=== PATIENT | male | born 1945 | race Caucasian/White ===

== ENCOUNTER 2021-08-17 10:02 | Inpatient (IN) | payer BC ==
[~2021-08-17] VITALS: Ht 175.3 cm; Wt 98.0 kg
[2021-08-17] MEDS ORDERED: ACETAMINOPHEN ES 500 MG TABLET PO ONE (10:30)
[2021-08-17] MEDS ORDERED: PIPERACILLIN SODIUM/TAZOBACTAM 3.375 G in IV DEXTROSE 5% 50 ML IV ONE (10:30)
[2021-08-17] MEDS ORDERED: IV NORMAL SALINE 1000 ML BAG IV ONE (10:30)
[2021-08-17] MEDS ORDERED: HYDR-4209 PO (10:35)
[2021-08-17] MEDS ORDERED: TAMS-3 PO (10:42)
[2021-08-17] MEDS ORDERED: CARB1CAP5 PO (10:42)
[2021-08-17] MEDS ORDERED: IBUP-1957 PO (10:42)
[2021-08-17] MEDS ORDERED: CYCL5TAB PO (10:42)
[2021-08-17] MEDS ORDERED: TRAZ-182 PO (10:42)
[2021-08-17] MEDS ORDERED: FURO40TA5 PO (10:42)
[2021-08-17] MEDS ORDERED: MONT10TA22 PO (10:42)
[2021-08-17] MEDS ORDERED: SERT100T PO (10:42)
[2021-08-17] MEDS ORDERED: ACET-73 PO (10:42)
[2021-08-17] MEDS ORDERED: DONE5TAB34 PO (10:42)
[2021-08-17] MEDS ORDERED: BUPR-319 PO (10:42)
[2021-08-17] MEDS ORDERED: PRAV80TA21 PO (10:42)
[2021-08-17] MEDS ORDERED: LOSA50TA39 PO (10:42)
[2021-08-17] MEDS ORDERED: GABA-532 PO (10:42)
[2021-08-17] MEDS ORDERED: ALLO100T PO (10:42)
[2021-08-17 10:51] LABS: HEMATOCRIT 45.7 % (36.7-47.1); MEAN CORPUSCULAR HEMOGLOBIN 29.2 uug (23.8-33.4); MEAN CORPUSCULAR VOLUME 87.5 fL (73.0-96.2); PLATELET COUNT (AUTO) 176 K/uL (152-348)
[2021-08-17 10:58] LABS: CARBON DIOXIDE 26 mmol/L (21-32); CHLORIDE 99 mmol/L (98-107); CREATININE 1.5 mg/dL (0.6-1.3); GLUCOSE 150 mg/dL (74-106); POTASSIUM 3.6 mmol/L (3.5-5.1); UREA NITROGEN, BLOOD 41 mg/dL (7-18)
[2021-08-17 10:59] LABS: *BILIRUBIN,URIN NEGATIVE (NEGATIVE); *BLOOD, URINE 2+ (NEGATIVE); *CLARITY,URINE CLEAR (CLEAR); *COLOR,URINE YELLOW (YELLOW); *KETONES,URINE NEGATIVE (NEGATIVE); *UROBILINOGEN,URINE 0.2 E.U./dl (NORMAL); LEUKOCYTE ESTERASE ,URINE 1+ (NEGATIVE); NITRITE, URINE NEGATIVE (NEGATIVE); PH,URINE 5.5 (5.0-8.0); UGLUCOSE NEGATIVE (NEGATIVE)
--- NOTE | 2021-08-17 11:03 | NUR ---
PT IS IN ROOM #1B. DR SMITH EVALUATED THE PT. PT's AT THE BEDSIDE. CONTINUE TO MONITOR THE PT.
[2021-08-17 11:11] LABS: ALANINE AMINOTRANSFERASE 8 U/L (16-63); ALKALINE PHOSPHATASE 127 U/L (50-136); ASPARTATE AMINOTRANSFERASE 24 U/L (15-37); BILIRUBIN,DIRECT 0.3 mg/dL (0.0-0.2); BILIRUBIN,TOTAL 0.8 mg/dL (0.2-1.0); TOTAL PROTEIN, SERUM 7.3 g/dL (6.4-8.2)
[2021-08-17] MEDS ORDERED: ACETAMINOPHEN ES 500 MG TABLET ONE (11:19)
[2021-08-17] MEDS ORDERED: PIPERACILLIN/TAZOBACTAM/D5W 50 ML IV ONE (11:20)
[2021-08-17] MEDS ORDERED: VANCOMYCIN IV 1,000 MG in IV DEXTROSE 5% 250 ML IV ONE (11:30)
[2021-08-17] MEDS ORDERED: VANCOMYCIN IV 200 ML ONE (11:40)
[2021-08-17] MEDS ORDERED: TRAZODONE 50 MG TABLET PO PRN (13:30)
[2021-08-17] MEDS ORDERED: Z GUARD REMEDY PASTE 57 GM TUBE TOP PRN (13:30)
[2021-08-17] MEDS ORDERED: ONDANSETRON 4 MG/2 ML VIAL IV PRN (13:30)
[2021-08-17] MEDS ORDERED: ACETAMINOPHEN 325 MG TABLET PO PRN (13:30)
--- NOTE | 2021-08-17 14:06 | NUR ---
REPORT WAS GIVEN TO DEBURR OPERATOR. PT WAS TRANSFERED TO ROOM #310.
--- NOTE | 2021-08-17 14:10 | NUR ---
Received patient from ER via gurney. Awake, on 2L O2 via NC. No signs of acute distress. NSR on court monitor. Vital signs 112/64. HR 82. Temp 97.6. O2 saturation 99%. Oriented patient to unit and room. Bed alarm on for safety. Call light within reach. Will continue to monitor.
[2021-08-17] MEDS ORDERED: CEFTRIAXONE 1 G in IV DEXTROSE 5% 50 ML IV SCH (15:00)
[2021-08-17] MEDS: IV NS 1000 ML 1,000 ML IV PRN (15:25)
[2021-08-17 16:00] VITALS: BP 122/70
[2021-08-17 16:38] LABS: BACTERIA,URINE MANY /HPF (NONE SEEN)
[2021-08-17 16:39] LABS: SQUAMOUS EPITHELIAL CELL,UR FEW /HPF (NONE SEEN)
[2021-08-17] MEDS: GABAPENTIN 100 MG CAPSULE PO SCH (17:04)
[2021-08-17] MEDS: RYTARY PO SCH ×2 (17:28→20:26)
--- NOTE | 2021-08-17 18:37 | NUR ---
Patient resting in bed. AOx4. On 1L O2 via NC. No signs of acute distress. Patient complains of pain during position change, but denies pain while resting. Needs anticipated and met. Compliant with medications and care. NSR with bundle branch on pvc monitor. IV access patent and intact. Bed alarm on for safety. Call light within reach. Will endorse to incoming shift for continuity of care.
[2021-08-17 19:58] VITALS: BP 130/71
[2021-08-17] MEDS: ATORVASTATIN 40 MG TABLET PO SCH (20:26)
[2021-08-17] MEDS: TAMSULOSIN HCL 0.4 MG CAP.SR.24H PO SCH (20:26)
[2021-08-17] MEDS: DOXYCYCLINE HYCLATE IV 100 MG in IV DEXTROSE 5% 100 ML IV SCH (20:27)
[2021-08-17] MEDS: HYDROCODONE/APAP 10-325 MG TABLET PO PRN (21:06)
[2021-08-17] MEDS ORDERED: BISACODYL 5 MG TABLET.DR PO ONE (22:00)
[2021-08-17] MEDS: CYCLOBENZAPRINE HCL 10 MG TABLET PO PRN (22:24)
--- NOTE | 2021-08-17 22:39 | NUR ---
Patient alert and able to make needs known.O2 at 1 [employer] via Nc saturating at 98 %.No s/s of distress noted. Patient c/o lower back pain.Offered Tylenol but refused .Stated its not helping him.Notified new order received ,noted and carried out.Menan given. Caro Alfonso seen and examined patient with new order.Bladder scan done with 55 ml .Patient incontinent to bladder.Pericare rendered .Iv on right FA patent and intact.Administered Iv as ordered. No a/r noted.Call light with in reach .Will continue to monitor.
[2021-08-17] MEDS: CEFEPIME HCL 1 G in IV DEXTROSE 5% 50 ML IV SCH (23:00)
[2021-08-18 00:12] VITALS: BP 139/87
[2021-08-18 04:25] VITALS: BP 152/81
[2021-08-18] MEDS: IV NS 1000 ML 1,000 ML IV PRN ×2 (04:36→21:33)
[2021-08-18] MEDS: CEFEPIME HCL 1 G in IV DEXTROSE 5% 50 ML IV SCH ×3 (05:23→21:36)
[2021-08-18 05:29] LABS: MEAN CORPUSCULAR VOLUME 86.2 fL (73.0-96.2); PLATELET COUNT (AUTO) 170 K/uL (152-348)
[2021-08-18 05:47] LABS: BILIRUBIN,TOTAL 0.5 mg/dL (0.2-1.0); CREATININE 1.3 mg/dL (0.6-1.3); MAGNESIUM 1.7 mg/dL (1.8-2.4); PHOSPHOROUS 2.5 mg/dL (2.5-4.9); POTASSIUM 3.4 mmol/L (3.5-5.1); TOTAL PROTEIN, SERUM 6.2 g/dL (6.4-8.2)
[2021-08-18] MEDS: HYDROCODONE/APAP 10-325 MG TABLET PO PRN ×2 (08:23→21:51)
[2021-08-18] MEDS: SERTRALINE HCL 100 MG TABLET PO SCH (08:24)
[2021-08-18] MEDS: GABAPENTIN 100 MG CAPSULE PO SCH ×2 (08:24→16:00)
[2021-08-18] MEDS: CYCLOBENZAPRINE HCL 10 MG TABLET PO PRN (08:24)
[2021-08-18] MEDS: DOCUSATE SODIUM 100 MG CAPSULE PO SCH ×2 (08:24→20:19)
[2021-08-18] MEDS: FUROSEMIDE 40 MG TABLET PO SCH (08:25)
[2021-08-18] MEDS: ALLOPURINOL 100 MG TABLET PO SCH (08:25)
[2021-08-18] MEDS: MONTELUKAST SODIUM 10 MG TABLET PO SCH (08:25)
[2021-08-18] MEDS: DONEPEZIL 5 MG TABLET PO SCH (08:25)
[2021-08-18] MEDS: LOSARTAN POTASSIUM 50 MG TABLET PO SCH (08:25)
[2021-08-18] MEDS: buPROPion XL 150 MG TAB.SR.24H PO SCH (08:25)
[2021-08-18] MEDS: DOXYCYCLINE HYCLATE IV 100 MG in IV DEXTROSE 5% 100 ML IV SCH (08:35)
[2021-08-18] MEDS: RYTARY PO SCH ×4 (08:36→20:19)
[2021-08-18] MEDS ORDERED: MAGNESIUM OXIDE 400 MG TABLET PO ONE (10:00)
[2021-08-18] MEDS ORDERED: POTASSIUM CHLORIDE 20 MEQ TAB.PRT.SR PO ONE (10:00)
[2021-08-18 11:31] VITALS: BP 147/81
--- NOTE | 2021-08-18 11:54 | NUR ---
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
[2021-08-18] MEDS: VANCOMYCIN IV 750 MG in IV DEXTROSE 5% 250 ML IV SCH (15:56)
[2021-08-18 16:00] VITALS: BP 159/71
--- NOTE | 2021-08-18 18:28 | NUR ---
patient is alert, oriented x4, no sob, resp even nonlabored, skin warm and dry to touch, repositioned, voided well x4, no residual noted at bladder scan. patient abdomen is distended, and rigid, patient has no bm, dr miranda aware with order to do fleet enema. Addendum: 08/18/21 at 1840 by KAT HWANG RN, RN dr miranda is aware about the procal result
[2021-08-18 20:00] VITALS: BP 153/78
[2021-08-18] MEDS: TAMSULOSIN HCL 0.4 MG CAP.SR.24H PO SCH (20:19)
[2021-08-18] MEDS: ATORVASTATIN 40 MG TABLET PO SCH (20:19)
[2021-08-18] MEDS ORDERED: FLEET ENEMA 133 ML BOTTLE RC ONE (21:00)
[2021-08-19] VITALS: BP 163/82
[2021-08-19 04:00] VITALS: BP 173/78
[2021-08-19] MEDS: CYCLOBENZAPRINE HCL 10 MG TABLET PO PRN (04:39)
--- NOTE | 2021-08-19 04:45 | NUR ---
Patient awake c/o muscle spasm on both lower legs. Medicated with Flexeril.No s/s of distress noted. Will continue to monitor.
[2021-08-19] MEDS: HYDROCODONE/APAP 10-325 MG TABLET PO PRN ×2 (05:45→21:08)
[2021-08-19] MEDS: VANCOMYCIN IV 750 MG in IV DEXTROSE 5% 250 ML IV SCH ×2 (06:11→16:57)
--- NOTE | 2021-08-19 06:15 | NUR ---
Patient still c/o muscle spasm . Flexeril was ineffective. [place] given.Patient remain alert.Noted Body shaking,repositioned patient for comfort.carolee Becerra notified with new order received .
[2021-08-19] MEDS: CEFEPIME HCL 1 G in IV DEXTROSE 5% 50 ML IV SCH ×3 (06:42→21:17)
--- NOTE | 2021-08-19 07:14 | NUR ---
Patient was given fleet enema last night and had large BM x1 this Am. Morning care provided.
--- NOTE | 2021-08-19 07:30 | NUR ---
Received call from Candelario from [facility] regarding patient's MRI scheduled today at midday.MRI checklist done.Called received from [facility]/Lab regarding patient's blood culture positive.Assessed patient's pain level with good result at this time .Endorsed to oncoming shift.
[2021-08-19 07:39] LABS: CREATININE 1.2 mg/dL (0.6-1.3); MAGNESIUM 1.9 mg/dL (1.8-2.4); POTASSIUM 3.3 mmol/L (3.5-5.1)
--- NOTE | 2021-08-19 07:45 | NUR ---
attempted to call [facility] and [place] professional for an [facility] ambulance picking supervisor to take patient to [facility] for an MRI, per ambulance companies, they are saturated and can not provide an [facility] ambulance. Relayed message to case management for possible transportation arrangeme=nt.
[2021-08-19] MEDS: DOCUSATE SODIUM 100 MG CAPSULE PO SCH ×2 (08:35→20:10)
[2021-08-19] MEDS: DONEPEZIL 5 MG TABLET PO SCH (08:35)
[2021-08-19] MEDS: buPROPion XL 150 MG TAB.SR.24H PO SCH (08:35)
[2021-08-19] MEDS: ALLOPURINOL 100 MG TABLET PO SCH (08:35)
[2021-08-19] MEDS: FUROSEMIDE 40 MG TABLET PO SCH (08:36)
[2021-08-19] MEDS: SERTRALINE HCL 100 MG TABLET PO SCH (08:36)
[2021-08-19] MEDS: MONTELUKAST SODIUM 10 MG TABLET PO SCH (08:36)
[2021-08-19] MEDS: GABAPENTIN 100 MG CAPSULE PO SCH ×2 (08:36→17:20)
[2021-08-19] MEDS: LOSARTAN POTASSIUM 50 MG TABLET PO SCH (08:36)
[2021-08-19] MEDS: RYTARY PO SCH ×4 (08:37→20:10)
--- NOTE | 2021-08-19 10:05 | NUR ---
called [facility] and schedule burr picker for 12 noon, spoke with jose armando, called bob peterson from [facility], no answer, message left to inform of burr picker time.
[2021-08-19 10:13] VITALS: BP 139/79
--- NOTE | 2021-08-19 11:37 | NUR ---
Dr. Hameed made aware of preliminary report of gram negative rods seen on gramstain, patient currently on cefepime and vancocin iv and tolerating atb well. not further orders at this time.
[2021-08-19] MEDS ORDERED: POTASSIUM CHLORIDE 50 ML IV SCH (13:00)
--- NOTE | 2021-08-19 13:11 | NUR ---
rytary cap 48.79-195mg not given to patient, patient is currently not in unit and in [place] getting an mri
--- NOTE | 2021-08-19 14:16 | NUR ---
patient returned from mri via ambulance accompanied by 2 body shop worker, patient with v/s 126/70 p: 86 rr: 20 t: 98.9 spo2 96 on 2L.
[2021-08-19] MEDS: HYDROMORPHONE 1 MG/1 ML DISP.SYRIN IV PRN (14:49)
[2021-08-19] MEDS: IV NS 1000 ML 1,000 ML IV PRN (15:20)
[2021-08-19] MEDS: POTASSIUM CHLORIDE 50 ML IV SCH ×2 (15:20→16:32)
[2021-08-19] MEDS ORDERED: MORPHINE SULFATE 4 MG/1 ML DISP.SYRIN IV PRN (15:30)
[2021-08-19] MEDS ORDERED: BISACODYL 10 MG SUPP.RECT RC PRN (15:30)
[2021-08-19 15:51] VITALS: BP 129/64
[2021-08-19] MEDS: LACTULOSE 20 G/30 ML LIQUID UDC PO SCH ×2 (16:32→20:10)
--- NOTE | 2021-08-19 18:00 | NUR ---
bladder scan completed as per order, scan showed 547cc in bladder, straight cath as per order, removed 450cc urine.
[2021-08-19 20:00] VITALS: BP 140/74
--- NOTE | 2021-08-19 20:00 | NUR ---
RECEIVED PATIENT AWAKE IN BED. A/O 2-3, BUT VERY FORGETFUL AND CONFUSED AT TIMES, NEEDS FREQUENT REDIRECTION. VSS. NO C/O PAIN OR DISCOMFORT AT THIS TIME. VS WNL. ON O2 1L NC SATING WELL. IVF INFUSING WELL TO LEFT FA #20 GAUGE. BED ALARM ON. CALL LIGHT IN REACH. ALL NEEDS ATTENDED, WILL CONTINUE T MONITOR AND ASSESS.
[2021-08-19] MEDS: TAMSULOSIN HCL 0.4 MG CAP.SR.24H PO SCH (20:10)
[2021-08-19] MEDS: ATORVASTATIN 40 MG TABLET PO SCH (20:10)
[2021-08-20] MEDS: HYDROMORPHONE 1 MG/1 ML DISP.SYRIN IV PRN ×3 (02:57→20:36)
[2021-08-20] MEDS: VANCOMYCIN IV 750 MG in IV DEXTROSE 5% 250 ML IV SCH (03:45)
[2021-08-20] MEDS: IPRATROPIUM BROMIDE 0.5 MG/2.5 ML NEBU NEB SCH ×4 (03:49→19:16)
[2021-08-20] MEDS: ALBUTEROL SULFATE 2.5 MG/3 ML NEBU NEB SCH ×4 (03:49→19:16)
[2021-08-20 04:00] VITALS: BP 130/40
--- NOTE | 2021-08-20 05:00 | NUR ---
PATIENT AWAKE IN BED. UNABLE TO URINATE. BLADDER SCANNED PATIENT AND RECEIVED 300cc OF URINE. PATIENT REFUSING FOR STRAIGHT CATH TO KEEP BEING INSERTED. CALLED OUT TO [employer] [employer] FOR FURTHER ORDERS. RECEIVED ORDER FOR INSERTION OF F/C. KUHN PLACED AND RECEIVED 300cc OUTPUT OF URINE. VS WNL. IVF STOPPED PER MD ORDER. BED ALARM ON. PATIENT IS VERY FORGETFUL AND NEEDS FREQUENT REDIRECTION. CALL LIGHT IN REACH. ALL NEEDS ATTENDED. WILL CONTINUE TO MONITOR AND ASSESS.
[2021-08-20] MEDS: CEFEPIME HCL 1 G in IV DEXTROSE 5% 50 ML IV SCH ×3 (06:13→22:13)
[2021-08-20] MEDS ORDERED: IPRATROPIUM BROMIDE 0.5 MG/2.5 ML NEBU NEB SCH (07:35)
[2021-08-20] MEDS ORDERED: ALBUTEROL SULFATE 2.5 MG/3 ML NEBU NEB SCH (07:35)
[2021-08-20 08:29] LABS: HEMATOCRIT 40.2 % (36.7-47.1); MEAN CORPUSCULAR HEMOGLOBIN 28.7 uug (23.8-33.4); MEAN CORPUSCULAR VOLUME 86.5 fL (73.0-96.2); PLATELET COUNT (AUTO) 129 K/uL (152-348)
[2021-08-20] MEDS: RYTARY PO SCH ×4 (08:30→20:35)
[2021-08-20 08:54] LABS: CREATININE 1.1 mg/dL (0.6-1.3); PHOSPHOROUS 2.2 mg/dL (2.5-4.9); POTASSIUM 3.1 mmol/L (3.5-5.1)
--- NOTE | 2021-08-20 08:55 | NUR ---
awake oriented x 3 but forgetful at times, repositioned for breakfast but in a lot of pain on the lower back 04/20- medicated with Dilaudid 1mg iv as ordered prn, on /- sat at 95%, BP 165/89- routine antihypertensive med given, safety measures maintained
[2021-08-20] MEDS: FUROSEMIDE 40 MG TABLET PO SCH (09:00)
[2021-08-20] MEDS: DOCUSATE SODIUM 100 MG CAPSULE PO SCH ×2 (09:00→20:33)
[2021-08-20] MEDS: GABAPENTIN 100 MG CAPSULE PO SCH ×2 (09:00→17:46)
[2021-08-20] MEDS: SERTRALINE HCL 100 MG TABLET PO SCH (09:01)
[2021-08-20] MEDS: ALLOPURINOL 100 MG TABLET PO SCH (09:02)
[2021-08-20] MEDS: DONEPEZIL 5 MG TABLET PO SCH (09:02)
[2021-08-20] MEDS: LOSARTAN POTASSIUM 50 MG TABLET PO SCH (09:02)
[2021-08-20] MEDS: LACTULOSE 20 G/30 ML LIQUID UDC PO SCH ×2 (09:02→20:33)
[2021-08-20] MEDS: MONTELUKAST SODIUM 10 MG TABLET PO SCH (09:02)
[2021-08-20] MEDS: buPROPion XL 150 MG TAB.SR.24H PO SCH (09:02)
[2021-08-20] MEDS ORDERED: POTASSIUM CHLORIDE 20 MEQ TAB.PRT.SR PO ONE (11:00)
[2021-08-20 11:55] VITALS: BP 175/83
[2021-08-20] MEDS: hydrALAZINE HCL 10 MG TABLET PO SCH ×2 (11:58→17:48)
--- NOTE | 2021-08-20 12:24 | NUR ---
visitor at bedside
[2021-08-20] MEDS: HYDROCODONE/APAP 10-325 MG TABLET PO PRN (14:03)
[2021-08-20] MEDS ORDERED: IOHEXOL 300MG/ML 100 ML INFUS..BTL ONE (14:06)
[2021-08-20] MEDS ORDERED: SWABABLE VALVE TRANSFER SET EA MC ONE (14:06)
[2021-08-20] MEDS ORDERED: IV NORMAL SALINE 250 ML IV ONE (14:06)
--- NOTE | 2021-08-20 14:15 | NUR ---
to CT scan of lumbar spine per bed, Yasemin significant other here and updated
--- NOTE | 2021-08-20 15:00 | NUR ---
back to room, no distress noted, significant other in room
[2021-08-20] MEDS ORDERED: NEUTRA PHOS PACKET PO ONE (15:45)
[2021-08-20 15:58] VITALS: BP_SYST 161; BP_SYST 179; BP_DIAS 81; BP_DIAS 89
[2021-08-20] MEDS: VANCOMYCIN IV 1,000 MG in IV DEXTROSE 5% 250 ML IV SCH (15:58)
--- NOTE | 2021-08-20 18:00 | NUR ---
ate dinner with assist, looks more comfortable, abdomen still looks distended but not firm, russo draining well of clear yellow urine, no BM this shift, all needs attended and met, call light within reach, no distress noted
[2021-08-20] MEDS: TAMSULOSIN HCL 0.4 MG CAP.SR.24H PO SCH (20:34)
[2021-08-20] MEDS: ATORVASTATIN 40 MG TABLET PO SCH (20:34)
[2021-08-20 20:36] VITALS: BP 171/93
[2021-08-20 21:45] VITALS: BP 150/90
[2021-08-21] MEDS: VANCOMYCIN IV 1,000 MG in IV DEXTROSE 5% 250 ML IV SCH ×2 (03:53→16:14)
[2021-08-21] MEDS: HYDROCODONE/APAP 10-325 MG TABLET PO PRN ×2 (03:54→12:29)
[2021-08-21 04:28] VITALS: BP 175/97
[2021-08-21] MEDS: hydrALAZINE HCL 10 MG TABLET PO SCH (04:33)
[2021-08-21] MEDS: CEFEPIME HCL 1 G in IV DEXTROSE 5% 50 ML IV SCH ×3 (05:44→22:37)
[2021-08-21 07:02] LABS: HEMATOCRIT 40.6 % (36.7-47.1); MEAN CORPUSCULAR HEMOGLOBIN 28.6 uug (23.8-33.4); PLATELET COUNT (AUTO) 140 K/uL (152-348)
[2021-08-21 07:13] LABS: PHOSPHOROUS 2.7 mg/dL (2.5-4.9)
[2021-08-21 08:04] VITALS: BP 168/91
[2021-08-21] MEDS: IPRATROPIUM BROMIDE 0.5 MG/2.5 ML NEBU NEB SCH ×3 (08:05→19:18)
[2021-08-21] MEDS: ALBUTEROL SULFATE 2.5 MG/3 ML NEBU NEB SCH ×3 (08:05→19:18)
[2021-08-21] MEDS: RYTARY PO SCH ×4 (08:41→21:03)
[2021-08-21] MEDS: LOSARTAN POTASSIUM 50 MG TABLET PO SCH (08:42)
[2021-08-21] MEDS: GABAPENTIN 100 MG CAPSULE PO SCH ×2 (08:42→16:55)
[2021-08-21] MEDS: MONTELUKAST SODIUM 10 MG TABLET PO SCH (08:42)
[2021-08-21] MEDS: FUROSEMIDE 40 MG TABLET PO SCH (08:42)
[2021-08-21] MEDS: SERTRALINE HCL 100 MG TABLET PO SCH (08:42)
[2021-08-21] MEDS: DONEPEZIL 5 MG TABLET PO SCH (08:42)
[2021-08-21] MEDS: buPROPion XL 150 MG TAB.SR.24H PO SCH (08:43)
[2021-08-21] MEDS: ALLOPURINOL 100 MG TABLET PO SCH (08:44)
--- NOTE | 2021-08-21 08:45 | NUR ---
Pt received awake, denies pain or distress. Pt had BM and declined Lactulose and Colace. pt had poor intake. Pt's abdomen is distended but soft, slight edema present. Ramos is draining yellow urine.
[2021-08-21] MEDS: LACTULOSE 20 G/30 ML LIQUID UDC PO SCH ×2 (08:51→21:00)
[2021-08-21] MEDS: DOCUSATE SODIUM 100 MG CAPSULE PO SCH ×2 (08:51→21:03)
[2021-08-21] MEDS: POTASSIUM CHLORIDE 10 MEQ TAB.PRT.SR PO SCH ×2 (11:03→13:58)
[2021-08-21 12:19] VITALS: BP 161/92
[2021-08-21] MEDS: CYCLOBENZAPRINE HCL 10 MG TABLET PO PRN (16:15)
--- NOTE | 2021-08-21 17:00 | NUR ---
IV site is noted to be infiltrated. IV abx fluids were stopped. Notified MD, order for Midline insertion was received.
--- NOTE | 2021-08-21 18:45 | NUR ---
MIdline inserted right upper arm, amanda 18,. IV abx restarted.
--- NOTE | 2021-08-21 19:25 | NUR ---
Received pt lying in bed, AO x to name, confused about location, on 2L NC saturating at 96%. MARY midline intact and patent. F/C intact and draining, no signs of acute distress. Denies any pain or discomfort at this time. Call lights within reach, safety measures initiated. Will continue to monitor.
[2021-08-21 20:16] VITALS: BP 172/94
[2021-08-21] MEDS: TAMSULOSIN HCL 0.4 MG CAP.SR.24H PO SCH (21:02)
[2021-08-21] MEDS: ATORVASTATIN 40 MG TABLET PO SCH (21:03)
[2021-08-22] MEDS: VANCOMYCIN IV 1,000 MG in IV DEXTROSE 5% 250 ML IV SCH ×2 (04:01→16:59)
[2021-08-22 04:17] VITALS: BP 172/85
[2021-08-22] MEDS: CEFEPIME HCL 1 G in IV DEXTROSE 5% 50 ML IV SCH ×3 (06:04→21:42)
--- NOTE | 2021-08-22 06:32 | NUR ---
Slept throughout the night, AO x 1. on 2L NC saturating at 95%. F/C draining well, clear yellow. MARY midline intact and patent. Vancomycin trough level at 17.9, gave Vancomycin antibiotics, tolerated well. needs have been met. Compliant with care and medication. No signs of acute distress. Denies pain and discomfort at this time. Call lights within reach, safety measures maintained. Will endorse to am shift.
[2021-08-22] MEDS: POTASSIUM CHLORIDE 20 MEQ TAB.PRT.SR PO ONE ×2 (06:40→07:50)
[2021-08-22 06:47] LABS: MEAN CORPUSCULAR HEMOGLOBIN 28.5 uug (23.8-33.4); MEAN CORPUSCULAR VOLUME 85.6 fL (73.0-96.2); PLATELET COUNT (AUTO) 163 K/uL (152-348)
--- NOTE | 2021-08-22 07:00 | NUR ---
HOLD KCL 20 meq per pharmacist. Pharmacist will re enter KCL 20meq order.
[2021-08-22 07:02] LABS: PHOSPHOROUS 2.1 mg/dL (2.5-4.9); POTASSIUM 3.2 mmol/L (3.5-5.1)
[2021-08-22] MEDS ORDERED: POTASSIUM CHLORIDE 40 MEQ in IV NS 1000 ML 1,000 ML IV PRN (07:15)
[2021-08-22] MEDS: ALBUTEROL SULFATE 2.5 MG/3 ML NEBU NEB SCH ×3 (07:22→19:20)
[2021-08-22] MEDS: IPRATROPIUM BROMIDE 0.5 MG/2.5 ML NEBU NEB SCH ×3 (07:22→19:20)
--- NOTE | 2021-08-22 07:30 | NUR ---
Received patient in bed alert and oriented times 2-3 but forgetful at times. Patient is coughing profusely. Will make MD aware. Patient is on 2L of oxygen saturating at 94%. Safety precautions are in place. Will continue to monitor.
[2021-08-22] MEDS: hydrALAZINE HCL 10 MG TABLET PO SCH (07:41)
[2021-08-22] MEDS ORDERED: GUAIFENESIN LA 600 MG TABLET.SA PO STA (07:59)
[2021-08-22] MEDS ORDERED: POTASSIUM CHLORIDE 20 MEQ TAB.PRT.SR PO ONE (08:00)
[2021-08-22] MEDS ORDERED: GUAIFENESIN SUGAR FREE 100 MG/5 ML UDC PO ONE (08:15)
[2021-08-22] MEDS: LACTULOSE 20 G/30 ML LIQUID UDC PO SCH ×2 (10:51→20:13)
[2021-08-22] MEDS: DOCUSATE SODIUM 100 MG CAPSULE PO SCH ×2 (10:52→20:06)
[2021-08-22] MEDS: DONEPEZIL 5 MG TABLET PO SCH (10:53)
[2021-08-22] MEDS: ALLOPURINOL 100 MG TABLET PO SCH (10:53)
[2021-08-22] MEDS: FUROSEMIDE 40 MG TABLET PO SCH (10:53)
[2021-08-22] MEDS: SERTRALINE HCL 100 MG TABLET PO SCH (10:53)
[2021-08-22] MEDS: MONTELUKAST SODIUM 10 MG TABLET PO SCH (10:53)
[2021-08-22] MEDS: GABAPENTIN 100 MG CAPSULE PO SCH ×2 (10:53→17:01)
[2021-08-22] MEDS: buPROPion XL 150 MG TAB.SR.24H PO SCH (10:54)
[2021-08-22] MEDS: LOSARTAN POTASSIUM 50 MG TABLET PO SCH (10:55)
[2021-08-22] MEDS: RYTARY PO SCH ×4 (10:56→20:07)
[2021-08-22] MEDS: HYDROCODONE/APAP 10-325 MG TABLET PO PRN (13:18)
[2021-08-22] MEDS: GUAIFENESIN SUGAR FREE 100 MG/5 ML UDC PO PRN ×2 (15:04→22:35)
[2021-08-22] MEDS ORDERED: NEUTRA PHOS PACKET PO ONE (15:45)
[2021-08-22 16:02] VITALS: BP 131/68
--- NOTE | 2021-08-22 18:19 | NUR ---
Patient left resting in bed. Patient is still coughing. 2L of O2 NC. Patient is stable. Ordered CPT STAT, Respiratory therapist came hours later and says the patient refused. When i asked the patient he stated that he would fo anything that will help him. Patient has coughed all day long. Safety precautions are in place. Will continue to monitor.
--- NOTE | 2021-08-22 19:30 | NUR ---
Received pt in no acute respiratory distress. Iv intact. Pt on2l nasal cannula . Pt forgetful and needs reorientation. Safety and comfort provided. Will continue to monitor.
[2021-08-22] MEDS: TAMSULOSIN HCL 0.4 MG CAP.SR.24H PO SCH (20:06)
[2021-08-22] MEDS: ATORVASTATIN 40 MG TABLET PO SCH (20:06)
[2021-08-22 20:11] VITALS: BP 164/73
--- NOTE | 2021-08-22 22:49 | NUR ---
Informed Dr. Mosley that pt Robitussin plain sugar free is not working for pt. ordered Tessalon mari 100 mg po q8h .
[2021-08-23] MEDS: BENZONATATE 100 MG CAPSULE PO SCH ×4 (00:01→21:24)
[2021-08-23] MEDS: VANCOMYCIN IV 1,000 MG in IV DEXTROSE 5% 250 ML IV SCH ×2 (03:57→15:02)
[2021-08-23 04:28] VITALS: BP 172/80
[2021-08-23] MEDS: CEFEPIME HCL 1 G in IV DEXTROSE 5% 50 ML IV SCH ×3 (05:48→21:24)
[2021-08-23] MEDS: hydrALAZINE HCL 10 MG TABLET PO SCH (05:49)
--- NOTE | 2021-08-23 05:59 | NUR ---
Pt slept intermittently. Pt observed to be coughing. Pt on 2l nasal cannula. Prescribed medication given and pt tolerated it well. Pt given Tylenol 650 mg at 2006h. Robitussin at 2235h for cough. Desyrel 25 mg prn [id number]. Pt tolerated it well. Pt given Apresoline 10mg for 172/80 blood pressure. Pt tolerated it well.Pt russo catheter intact and draining well. Iv intact. Will continue to monitor.
[2021-08-23 06:40] VITALS: BP 165/78
[2021-08-23 06:57] LABS: CREATININE 0.9 mg/dL (0.6-1.3)
[2021-08-23] MEDS: IPRATROPIUM BROMIDE 0.5 MG/2.5 ML NEBU NEB SCH ×3 (07:16→19:31)
[2021-08-23] MEDS: ALBUTEROL SULFATE 2.5 MG/3 ML NEBU NEB SCH ×3 (07:16→19:31)
[2021-08-23 08:04] LABS: POTASSIUM 2.7 mmol/L (3.5-5.1)
--- NOTE | 2021-08-23 08:30 | NUR ---
RECEIVED CALL FROM THE LAB POTASSIUM LEVEL IS 2.7 DR DENISE GROVER AWARE WITH NO NEW ORDERS AT THIS TIME.
[2021-08-23] MEDS: DOCUSATE SODIUM 100 MG CAPSULE PO SCH ×2 (08:46→20:18)
[2021-08-23] MEDS: ALLOPURINOL 100 MG TABLET PO SCH (08:47)
[2021-08-23] MEDS: DONEPEZIL 5 MG TABLET PO SCH (08:47)
[2021-08-23] MEDS: buPROPion XL 150 MG TAB.SR.24H PO SCH (08:47)
[2021-08-23] MEDS: SERTRALINE HCL 100 MG TABLET PO SCH (08:47)
[2021-08-23] MEDS: GABAPENTIN 100 MG CAPSULE PO SCH ×2 (08:47→17:09)
[2021-08-23] MEDS: MONTELUKAST SODIUM 10 MG TABLET PO SCH (08:47)
[2021-08-23] MEDS: RYTARY PO SCH ×4 (08:48→20:20)
[2021-08-23] MEDS: LOSARTAN POTASSIUM 50 MG TABLET PO SCH (08:48)
[2021-08-23] MEDS: LACTULOSE 20 G/30 ML LIQUID UDC PO SCH ×3 (08:52→20:26)
[2021-08-23] MEDS: POTASSIUM CHLORIDE 20 MEQ TAB.PRT.SR PO SCH ×2 (09:30→13:25)
--- NOTE | 2021-08-23 09:46 | NUR ---
AWAKE ALERT AND ORIENTED COOPERATIVE DENIES PAIN OR DISCOMFORTS REMAIN ON IVF ORDERED WITH NO S/S OF INFILTERATION ON SITE DUE MEDS GIVEN AND TOLERATED WELL POTASSIUM REPLACEMENTS STARTED ORDERED KUHN CATH IN PLACE WITH NO S/S OF INFILTERATION ON SITE CALL LIGHTS AND PERSONAL BELONGINGS ARE WITHIN EASY REACH AT THIS TIME WILL CONTINUE TO OBSERVE.
[2021-08-23 11:56] VITALS: BP 127/70
[2021-08-23] MEDS ORDERED: hydrALAZINE HCL 10 MG TABLET PO PRN (13:45)
--- NOTE | 2021-08-23 14:32 | NUR ---
NEW ORDERS FOR EXTRA POTASSIUM RECEIVED AND CARRIED OUT ALSO ORDER FOR BIPAP NOTED PATIENT SIGNIFICANT ORDER AWARE AND STATED WILL BRING OWN MACHINE FROM [place].
[2021-08-23] MEDS ORDERED: BUMETANIDE INJ 4 MG in IV DEXTROSE 5% 24 ML IV ONE (15:00)
[2021-08-23] MEDS ORDERED: NEUTRA PHOS PACKET PO ONE (15:15)
[2021-08-23 16:00] VITALS: BP 151/86
[2021-08-23] MEDS: POTASSIUM CHLORIDE 50 ML IV SCH ×4 (17:07→21:22)
[2021-08-23] MEDS: LIDOCAINE 5% PATCH TD SCH (17:08)
--- NOTE | 2021-08-23 18:00 | NUR ---
NEUTRA PHOS GIVEN ORDERED CONTINUE ON POTASSIUM ORDERED SECOND OF THE 4 BAGS INFUSING HE IS ALERT HAS OCASSIONAL COUGH BIPAP MACHINE AT THE BEDSIDE WILL ENDORSE FOR THE RESPIRATORY THERAPIST TO SET UP WHEN PATIENT IS READY TO SLEEP TONITE.
--- NOTE | 2021-08-23 18:30 | NUR ---
BUMEX IS STILL INFUSING AT THIS TIME.
[2021-08-23 20:10] VITALS: BP 151/74
[2021-08-23] MEDS: TAMSULOSIN HCL 0.4 MG CAP.SR.24H PO SCH (20:18)
[2021-08-23] MEDS: ATORVASTATIN 40 MG TABLET PO SCH (20:18)
[2021-08-23] MEDS: GUAIFENESIN SUGAR FREE 100 MG/5 ML UDC PO PRN (21:50)
--- NOTE | 2021-08-23 22:00 | NUR ---
Took over this patient now from another staff, report received. Patient in bed in high fowlers position. AAO x1, with some confusion noted. Answers questions inappropriately, speech is clear. Noted with SOB due to persistent dry cough. Robitussin PO provided, with minimal help. On 2L o2 via NC, 02 sats remain at 95-97%. Denies any pain at this time. Repositioned for comfort. Needs assessed and met. Safety measures initiated. Call light within reach.
[2021-08-24 04:10] VITALS: BP 128/67
[2021-08-24] MEDS: CEFEPIME HCL 1 G in IV DEXTROSE 5% 50 ML IV SCH ×3 (05:26→21:46)
[2021-08-24] MEDS: BENZONATATE 100 MG CAPSULE PO SCH ×3 (05:31→21:46)
[2021-08-24] MEDS: RYTARY PO SCH ×4 (06:31→20:24)
[2021-08-24 06:42] LABS: HEMATOCRIT 38.9 % (36.7-47.1); MEAN CORPUSCULAR HEMOGLOBIN 28.3 uug (23.8-33.4); MEAN CORPUSCULAR VOLUME 84.4 fL (73.0-96.2); PLATELET COUNT (AUTO) 250 K/uL (152-348)
--- NOTE | 2021-08-24 06:45 | NUR ---
Patient slept well for remainder of shift. Occasional rare dry cough noted. BiPap on for sleep apnea- patient tolerates well. Continues on 2L O2 via NC, 02 sats 93-96%. No c/o pain. Safety measures continued. Call light within reach.
[2021-08-24 07:05] LABS: PHOSPHOROUS 2.4 mg/dL (2.5-4.9); POTASSIUM 2.9 mmol/L (3.5-5.1)
[2021-08-24] MEDS: ALBUTEROL SULFATE 2.5 MG/3 ML NEBU NEB SCH ×3 (07:31→21:08)
[2021-08-24] MEDS: IPRATROPIUM BROMIDE 0.5 MG/2.5 ML NEBU NEB SCH ×3 (07:31→21:07)
--- NOTE | 2021-08-24 07:52 | NUR ---
received in bed awake getting a breathing treatment. noted with intermittent coughing. no s/s sob or pain noted. O2 2 lpm nasal cannula o2 sat 93%. fc intact draining yellow urine. iv intact. will cont to monitor.
[2021-08-24] MEDS ORDERED: POTASSIUM PHOSPHATE MM 15 MMOL in IV NORMAL SALINE 250 ML IV ONE (08:45)
[2021-08-24] MEDS: DOCUSATE SODIUM 100 MG CAPSULE PO SCH ×2 (08:47→20:24)
[2021-08-24] MEDS: LACTULOSE 20 G/30 ML LIQUID UDC PO SCH ×2 (08:47→20:25)
[2021-08-24] MEDS: LIDOCAINE 5% PATCH TD SCH (08:47)
[2021-08-24] MEDS: SERTRALINE HCL 100 MG TABLET PO SCH (08:48)
[2021-08-24] MEDS: GABAPENTIN 100 MG CAPSULE PO SCH ×2 (08:48→17:10)
[2021-08-24] MEDS: ALLOPURINOL 100 MG TABLET PO SCH (08:48)
[2021-08-24] MEDS: DONEPEZIL 5 MG TABLET PO SCH (08:49)
[2021-08-24] MEDS: LOSARTAN POTASSIUM 50 MG TABLET PO SCH (08:50)
[2021-08-24 08:51] LABS: BILIRUBIN,DIRECT 0.2 mg/dL (0.0-0.2); BILIRUBIN,TOTAL 0.9 mg/dL (0.2-1.0); TOTAL PROTEIN, SERUM 6.2 g/dL (6.4-8.2)
[2021-08-24] MEDS: MONTELUKAST SODIUM 10 MG TABLET PO SCH (08:51)
[2021-08-24] MEDS: ENSURE ENLIVE (VAN) 240 ML LIQUID PO SCH (08:52)
[2021-08-24] MEDS: buPROPion XL 150 MG TAB.SR.24H PO SCH (08:52)
[2021-08-24] MEDS ORDERED: POTASSIUM CHLORIDE 10 MEQ TAB.PRT.SR PO SCH (09:00)
[2021-08-24] MEDS: POTASSIUM PHOSPHATE MM 7.5 MMOL in IV NORMAL SALINE 97.5 ML IV SCH ×2 (10:59→15:36)
--- NOTE | 2021-08-24 11:46 | NUR ---
seen and examined by dr. venegas no new orders received at this time.
[2021-08-24 12:18] VITALS: BP 130/73
[2021-08-24] MEDS: PROTEIN SUPPLEMENT (PROSTAT) 30 ML LIQUID PO SCH (12:56)
[2021-08-24 16:00] VITALS: BP 140/69
--- NOTE | 2021-08-24 18:43 | NUR ---
still with intermittent productive coughing. no sob noted. remains on 2lpm nc tolerated. safety measures maintained. kept comfortable. call light in reach.
--- NOTE | 2021-08-24 19:35 | NUR ---
Received pt lying in bed, sitting up. AO x 1/2, sometimes forgetful. On 2L NC saturating at 97%. MARY Midline intact. No signs of acute distress. Denies any pain or discomfort at this time. Call lights within reah, safety measurs in placed.
[2021-08-24 20:10] VITALS: BP 170/71
[2021-08-24] MEDS: TAMSULOSIN HCL 0.4 MG CAP.SR.24H PO SCH (20:24)
[2021-08-25 04:13] VITALS: BP 141/81
[2021-08-25] MEDS: BENZONATATE 100 MG CAPSULE PO SCH ×2 (05:04→13:06)
[2021-08-25] MEDS: HYDROCODONE/APAP 5-325MG TABLET PO PRN ×2 (05:07→11:27)
[2021-08-25] MEDS: GUAIFENESIN SUGAR FREE 100 MG/5 ML UDC PO PRN (05:31)
[2021-08-25] MEDS: CEFEPIME HCL 1 G in IV DEXTROSE 5% 50 ML IV SCH (05:31)
--- NOTE | 2021-08-25 05:41 | NUR ---
Pt slept intermittently throughout the night. AO x 2, forgetful at times. On 2L NC saturating at 95%. Midline intact. Cefepime abx given, tolerated well. F/C intact, draining well. Yellow, clear urine, no foul odor. Guaifenesin PRN given for cough. Compliant with medication and care. Call lights within reach, safety measures maintained. Will endorse to am shift.
[2021-08-25] MEDS: RYTARY PO SCH ×2 (06:30→11:27)
--- NOTE | 2021-08-25 07:15 | NUR ---
Received patient asleep in bed. On 2L NC. No signs of acute distress. Bed alarm on. Call light within reach. Will continue to monitor.
[2021-08-25] MEDS: IPRATROPIUM BROMIDE 0.5 MG/2.5 ML NEBU NEB SCH ×2 (07:23→13:07)
[2021-08-25] MEDS: ALBUTEROL SULFATE 2.5 MG/3 ML NEBU NEB SCH ×2 (07:23→13:07)
[2021-08-25] MEDS: GABAPENTIN 100 MG CAPSULE PO SCH (08:25)
[2021-08-25] MEDS: MONTELUKAST SODIUM 10 MG TABLET PO SCH (08:26)
[2021-08-25] MEDS: ENSURE ENLIVE (VAN) 240 ML LIQUID PO SCH (08:26)
[2021-08-25] MEDS: DOCUSATE SODIUM 100 MG CAPSULE PO SCH (08:26)
[2021-08-25] MEDS: ALLOPURINOL 100 MG TABLET PO SCH (08:26)
[2021-08-25] MEDS: LACTULOSE 20 G/30 ML LIQUID UDC PO SCH ×2 (08:26→09:00)
[2021-08-25] MEDS: SERTRALINE HCL 100 MG TABLET PO SCH (08:26)
[2021-08-25] MEDS: DONEPEZIL 5 MG TABLET PO SCH (08:27)
[2021-08-25] MEDS: LIDOCAINE 5% PATCH TD SCH (08:27)
[2021-08-25] MEDS: buPROPion XL 150 MG TAB.SR.24H PO SCH (08:27)
[2021-08-25] MEDS: PROTEIN SUPPLEMENT (PROSTAT) 30 ML LIQUID PO SCH (08:34)
[2021-08-25] MEDS ORDERED: POTASSIUM CHLORIDE 20 MEQ TAB.PRT.SR PO SCH ×2 (09:00→17:00)
[2021-08-25 09:50] LABS: HEMATOCRIT 39.7 % (36.7-47.1); MEAN CORPUSCULAR HEMOGLOBIN 28.4 uug (23.8-33.4); MEAN CORPUSCULAR VOLUME 84.4 fL (73.0-96.2); PLATELET COUNT (AUTO) 289 K/uL (152-348)
[2021-08-25 10:06] LABS: CREATININE 0.8 mg/dL (0.6-1.3); PHOSPHOROUS 2.7 mg/dL (2.5-4.9); POTASSIUM 2.9 mmol/L (3.5-5.1)
[2021-08-25] MEDS: LOSARTAN POTASSIUM 50 MG TABLET PO SCH (10:21)
[2021-08-25 11:43] VITALS: BP 158/81
[2021-08-25] MEDS ORDERED: levoFLOXacin 750 MG TABLET PO SCH (14:00)
[2021-08-25] MEDS ORDERED: GABA-532 PO (15:40)
[2021-08-25] MEDS ORDERED: PROT30LI PO (15:40)
[2021-08-25] MEDS ORDERED: ALBU2SYR3 PO (15:40)
[2021-08-25] MEDS ORDERED: HYDR-3972 PO (15:40)
[2021-08-25] MEDS ORDERED: LOSA50TA3 PO (15:40)
[2021-08-25] MEDS ORDERED: ACET325T53 PO (15:40)
[2021-08-25] MEDS ORDERED: ACID1TAB4 PO (15:40)
[2021-08-25] MEDS ORDERED: DOCU-141 PO (15:40)
[2021-08-25] MEDS ORDERED: BISA10SU12 RC (15:40)
[2021-08-25] MEDS ORDERED: LIDO30AD10 TD (15:40)
[2021-08-25] MEDS ORDERED: LEVO750T46 PO (15:40)
[2021-08-25] MEDS ORDERED: ALBU2.5V13 NEB (15:40)
[2021-08-25] MEDS ORDERED: MENT71OI TOP (15:40)
[2021-08-25] MEDS ORDERED: POTA-194 PO (15:40)
[2021-08-25] MEDS ORDERED: CYCL10TA9 PO (15:40)
[2021-08-25] MEDS ORDERED: Lactose-Free Food PO (15:40)
[2021-08-25] MEDS ORDERED: CLON1PAT TD (15:54)
[2021-08-25 16:00] VITALS: BP 149/75
--- NOTE | 2021-08-25 16:32 | NUR ---
Discharged patient to [facility]. On 2L O2 via NC. No signs of acute distress. Patient denies pain/ discomfort. Ramos catheter draining yellow, clear urine. Discharge instructions given to patient and SO at bedside. Discharge documents signed and placed in chart. Belongings accounted for and belongings list signed. IV access removed. ID armband removed. Nursing report given to Pedro of [facility]. Patient left hospital via ambulance gurney.
[2021-08-25] MEDS ORDERED: CLONIDINE-TTS 1 PATCH TD SCH (17:00)
== END 2021-08-25 16:30 | DRG 871 ==
LOC: ER 10:02 → TELE3 12:19 → MEDSURG3 08-19 19:05
PROVIDERS: ADMIT Nurse Practitioner Acute Care; ATTEND Internal Medicine
PROC: 05H533Z Insertion of Infusion Device into Right Subclavian Vein, Percutaneous Approach (ICD-10-PCS; principal; 2021-08-21)
PROC: B546ZZA Ultrasonography of Right Subclavian Vein, Guidance (ICD-10-PCS; 2021-08-21)
DX: A41.59 Other Gram-negative sepsis (principal); N17.0 Acute kidney failure with tubular necrosis; G92.8 Other toxic encephalopathy; I50.33 Acute on chronic diastolic (congestive) heart failure; E43 Unspecified severe protein-calorie malnutrition; J15.9 Unspecified bacterial pneumonia; J69.0 Pneumonitis due to inhalation of food and vomit; D68.59 Other primary thrombophilia; N10 Acute pyelonephritis; E87.1 Hypo-osmolality and hyponatremia; T84.59XA Infection and inflammatory reaction due to other internal joint prosthesis, initial encounter; E83.52 Hypercalcemia; B96.1 Klebsiella pneumoniae [K. pneumoniae] as the cause of diseases classified elsewhere; E78.5 Hyperlipidemia, unspecified; E86.0 Dehydration; G30.9 Alzheimer's disease, unspecified; G20 Parkinson's disease; F02.80 Dementia in other diseases classified elsewhere, unspecified severity, without behavioral disturbance, psychotic disturbance, mood disturbance, and anxiety; I11.0 Hypertensive heart disease with heart failure; J45.909 Unspecified asthma, uncomplicated; N40.1 Benign prostatic hyperplasia with lower urinary tract symptoms; Z86.14 Personal history of Methicillin resistant Staphylococcus aureus infection; Z20.822 Contact with and (suspected) exposure to COVID-19; M47.9 Spondylosis, unspecified; E87.6 Hypokalemia; G62.9 Polyneuropathy, unspecified; E88.09 Other disorders of plasma-protein metabolism, not elsewhere classified; K59.00 Constipation, unspecified; R33.8 Other retention of urine; Z68.31 Body mass index [BMI] 31.0-31.9, adult; M19.90 Unspecified osteoarthritis, unspecified site; M10.9 Gout, unspecified; I71.4 Abdominal aortic aneurysm, without rupture; Y83.8 Other surgical procedures as the cause of abnormal reaction of the patient, or of later complication, without mention of misadventure at the time of the procedure; Y92.89 Other specified places as the place of occurrence of the external cause; M48.061 Spinal stenosis, lumbar region without neurogenic claudication
CPT/HCPCS: 36415; 51702; 70030-TC; 71045; 72148; 74018; 83605; 83735; 83970; 84100; 85025; 85730; 87040; 87070; 87077; 87086; 87400; 93005; 93307; 94640; A4217; A4663; A6209; A9150; G0378; J0692; J0696; J1170; J2543; J3370; J3480; J3490; J3590; J7030; J7040; J7050; J7060; J8499; Q9967

== ENCOUNTER 2024-01-28 13:03 | Emergency (ER) | payer BC ==
[~2024-01-28] VITALS: Ht 177.8 cm; Wt 63.5 kg
[~2024-01-28 13:03] MED LIST: ACET325T53 PO; ACID1TAB4 PO; ALBU2.5V13 NEB; ALBU2SYR3 PO; ALLO100T PO; BISA10SU12 RC; BUPR-319 PO; CARB1CAP5 PO; CLON1PAT TD; CYCL10TA9 PO; DOCU-141 PO; DONE5TAB34 PO; GABA-532 PO; HYDR-3972 PO; LEVO750T46 PO; LIDO30AD10 TD; LOSA50TA3 PO; Lactose-Free Food PO; MENT71OI TOP; MONT10TA22 PO; POTA-194 PO; PROT30LI PO; SERT100T PO; TAMS-3 PO; TRAZ-182 PO
[2024-01-28 14:00] LABS: BASOPHILS # (AUTO) 0.1 K/UL (0.0-0.2); BASOPHILS % (AUTO) 2.1 % (0.0-2.0); DIFFERENTIAL COMMENT 0; EOSINOPHILS # (AUTO) 0.1 K/uL (0.0-0.7); EOSINOPHILS % (AUTO) 1.5 % (0.0-7.0); HEMATOCRIT 44.5 % (36.7-47.1); HEMOGLOBIN 15.2 g/dL (12.5-16.3); LYMPHOCYTES # (AUTO) 1.2 K/uL (0.8-4.8); LYMPHOCYTES % (AUTO) 17.1 % (20.5-51.5); MEAN CORPUSCULAR HEMOGLOBIN 30.9 uug (23.8-33.4); MEAN CORPUSCULAR HGB CONC 34 g/dL (32.5-36.3); MEAN CORPUSCULAR VOLUME 90.9 fL (73.0-96.2); MONOCYTES # (AUTO) 0.5 K/uL (0.1-1.30); NEUTROPHILS # (AUTO) 4.8 K/uL (1.8-8.9); NEUTROPHILS % (AUTO) 71.3 % (38.5-71.5); PLATELET COUNT (AUTO) 206 K/uL (152-348); RED CELL DISTRIBUTION WIDTH 15.8 % (12.1-16.2); WHITE BLOOD COUNT (AUTO) 6.8 K/uL (3.6-10.2)
[2024-01-28 14:08] LABS: CALCIUM 10.2 mg/dL (8.5-10.1); CARBON DIOXIDE 27 mmol/L (21-32); CHLORIDE 108 mmol/L (98-107); CREATININE 1.7 mg/dL (0.6-1.3); GLUCOSE 95 mg/dL (74-106); POTASSIUM 4.9 mmol/L (3.5-5.1); SODIUM SERUM 141 mmol/L (136-145); UREA NITROGEN, BLOOD 35 mg/dL (7-18)
[2024-01-28 14:21] LABS: NT-PRO BNP 192 pg/mL (0-125)
[2024-01-28] MEDS ORDERED: GUAIFENESIN/DEXTROMETHORPHAN 5 ML UDC ONE (14:43)
[2024-01-28] MEDS: GUAIFENESIN/DEXTROMETHORPHAN 5 ML UDC PO ONE (14:45)
[2024-01-28] MEDS: GUAIFENESIN/CODEINE 5 ML LIQUID UDC PO ONE ×2 (14:58→18:19)
[2024-01-28] MEDS: MIDAZOLAM HCL 50 MG in IV NORMAL SALINE 40 ML IV PRN (15:34)
[2024-01-28] MEDS ORDERED: FLUT16SP16 BNOSTRILS (16:16)
[2024-01-28] MEDS ORDERED: OXYM15MI4 NS (16:16)
[2024-01-28] MEDS ORDERED: GUAI5SYR4 PO (16:16)
[2024-01-28] MEDS ORDERED: AMOX-430 PO (16:16)
[2024-01-28] MEDS ORDERED: GUAIFENESIN/CODEINE 5 ML LIQUID UDC ONE (18:12)
[2024-01-28 19:11] VITALS: BP 124/69; O2SAT 97
== END 2024-01-28 19:12 | disposition home or self-care (01) ==
LOC: ER 13:05
DX: J32.9 Chronic sinusitis, unspecified (principal); K21.9 Gastro-esophageal reflux disease without esophagitis; F32.A Depression, unspecified; Z79.899 Other long term (current) drug therapy; Z88.1 Allergy status to other antibiotic agents
CPT/HCPCS: 36415; 71045; 84484; 85025; 93005; A4606; A4663

== ENCOUNTER 2025-04-14 06:02 | Inpatient (IN) | payer BC ==
[~2025-04-14] VITALS: Ht 175.3 cm; Wt 90.7 kg
[2025-04-14] VITALS (11 sets, daily range): BP systolic 116–164; BP diastolic 60–81; TEMP 97.7–98.4; O2SAT 92–100
[~2025-04-14 06:02] MED LIST changes: +AMOX-430 PO; +FLUT16SP16 BNOSTRILS; +GUAI5SYR4 PO; +OXYM15MI4 NS
[2025-04-14] MEDS: IPRATROPIUM BROMIDE 0.5 MG/2.5 ML NEBU NEB ONE (06:33)
[2025-04-14] MEDS: ALBUTEROL SULFATE 2.5 MG/3 ML NEBU NEB ONE (06:33)
[2025-04-14] MEDS ORDERED: IPRATROPIUM BROMIDE 0.5 MG/2.5 ML NEBU ONE (06:36)
[2025-04-14] MEDS ORDERED: ALBUTEROL SULFATE 2.5 MG/3 ML NEBU ONE (06:36)
[2025-04-14] MEDS ORDERED: MULT-1045 PO (06:42)
[2025-04-14] MEDS ORDERED: CYAN-51 PO (06:42)
[2025-04-14] MEDS ORDERED: SENN8.6T19 PO (06:42)
[2025-04-14] MEDS ORDERED: KETO120S5 TP (06:42)
[2025-04-14] MEDS ORDERED: LORA-259 PO (06:42)
[2025-04-14] MEDS ORDERED: BENZ200C53 PO (06:42)
[2025-04-14] MEDS ORDERED: ASCO-495 PO (06:42)
[2025-04-14] MEDS ORDERED: BALS60OI TP (06:42)
[2025-04-14] MEDS ORDERED: NYST15CR TP (06:42)
[2025-04-14] MEDS ORDERED: IPRA3AMP23 IH ×2 (06:42)
[2025-04-14] MEDS ORDERED: THIO200T PO (06:42)
[2025-04-14] MEDS ORDERED: AMLO-212 PO (06:42)
[2025-04-14] MEDS ORDERED: AMIT10TA6 PO (06:42)
[2025-04-14] MEDS ORDERED: PETR113O TP (06:42)
[2025-04-14] MEDS ORDERED: CHOL500062 PO (06:42)
[2025-04-14] MEDS ORDERED: NALO4SPR NS (06:42)
[2025-04-14] MEDS ORDERED: MENT3.5O TP (06:42)
[2025-04-14] MEDS ORDERED: CARB1CAP5 PO (06:42)
[2025-04-14] MEDS ORDERED: ALBU6.7H9 INH (06:42)
[2025-04-14] MEDS ORDERED: POLY250017 PO (06:42)
[2025-04-14] MEDS ORDERED: DONE10TA44 PO (06:42)
[2025-04-14] MEDS ORDERED: TRIA60LO7 TP (06:42)
[2025-04-14] MEDS ORDERED: FURO40TA5 PO (06:42)
[2025-04-14] MEDS ORDERED: OLOP2.5D16 EACHEYE (06:42)
[2025-04-14] MEDS ORDERED: ATOR40TA PO (06:42)
[2025-04-14] MEDS ORDERED: GUAI-1197 PO (06:42)
[2025-04-14] MEDS ORDERED: FOLI0.8T3 PO (06:42)
[2025-04-14] MEDS ORDERED: ZINC57OI3 TP (06:42)
[2025-04-14] MEDS ORDERED: FAMO40TA7 PO (06:42)
[2025-04-14] MEDS ORDERED: APIX5TAB PO (06:42)
[2025-04-14] MEDS ORDERED: BUDE10.22 INH (06:42)
[2025-04-14] MEDS ORDERED: MAG30ORA PO (06:42)
[2025-04-14] MEDS ORDERED: [UNRECOGNIZED DRUG - CODE] TP (06:42)
[2025-04-14] MEDS ORDERED: GABA300T25 PO ×2 (06:42)
[2025-04-14 06:51] LABS: PLATELET COUNT (AUTO) 198 K/uL (152-348); RED BLOOD CELL COUNT(AUTO) 4.50 MIL/uL (4.06-5.63); RED CELL DISTRIBUTION WIDTH 17.4 % (12.1-16.2); WHITE BLOOD COUNT (AUTO) 5.7 K/uL (3.6-10.2)
[2025-04-14 07:16] LABS: SODIUM SERUM 140 mmol/L (136-145)
[2025-04-14 07:21] LABS: CREATININE 1.7 mg/dL (0.6-1.3); UREA NITROGEN, BLOOD 29 mg/dL (7-18)
[2025-04-14 07:27] LABS: ASPARTATE AMINOTRANSFERASE 16 U/L (15-37); TOTAL PROTEIN, SERUM 6.6 g/dL (6.4-8.2)
[2025-04-14] MEDS: AZITHROMYCIN IV 500 MG in IV DEXTROSE 5% 250 ML IV SCH (10:13)
[2025-04-14] MEDS ORDERED: REMEDY ESSENTIAL ZINC PASTE 113 GM TP PRN (10:30)
[2025-04-14] MEDS ORDERED: SENNOSIDES 1 TABLET PO PRN (10:30)
[2025-04-14] MEDS ORDERED: ONDANSETRON 4 MG/2 ML VIAL IV PRN (10:30)
[2025-04-14] MEDS ORDERED: HYDROCODONE/APAP 5-325MG TABLET PO PRN (10:30)
[2025-04-14] MEDS ORDERED: MAGNESIUM HYDROXIDE 30 ML LIQUID UDC PO PRN (10:30)
[2025-04-14] MEDS ORDERED: ACETAMINOPHEN 325 MG TABLET PO PRN (10:30)
[2025-04-14] MEDS ORDERED: ACETAMINOPHEN 325 MG TABLET-SA PATIENTS-PAIN ONLY PO PRN (10:30)
[2025-04-14] MEDS: IPRATROPIUM BROMIDE 0.5 MG/2.5 ML NEBU NEB SCH (11:30)
[2025-04-14] MEDS: ALBUTEROL SULFATE 2.5 MG/3 ML NEBU NEB SCH (11:30)
[2025-04-14] MEDS: GUAIFENESIN SUGAR FREE 100 MG/5 ML UDC PO PRN (12:00)
[2025-04-14] MEDS ORDERED: GABAPENTIN PO SCH (13:00)
[2025-04-14] MEDS ORDERED: ALPH200C PO (14:51)
[2025-04-14] MEDS ORDERED: GABA300C PO (14:53)
[2025-04-14] MEDS ORDERED: POTA20TA83 PO (15:00)
[2025-04-14] MEDS ORDERED: CARB1CAP3 PO (15:02)
[2025-04-14] MEDS ORDERED: HYDR-4209 PO (15:09)
[2025-04-14] MEDS ORDERED: TRIA15CR4 TP (15:15)
[2025-04-14] MEDS ORDERED: CLONIDINE HCL 0.1 MG TABLET PO PRN (16:45)
[2025-04-14] MEDS ORDERED: LEVODOPA PO SCH (17:00)
[2025-04-14] MEDS ORDERED: CARBIDOPA PO SCH (17:00)
[2025-04-14] MEDS: AMITRIPTYLINE HCL 10 MG TABLET PO SCH (17:07)
[2025-04-14] MEDS: GABAPENTIN 300 MG CAPSULE PO SCH (17:07)
[2025-04-14] MEDS: CARBIDOPA/LEVODOPA 25-100MG TABLET PO SCH ×2 (17:08→21:35)
[2025-04-14] MEDS: LOSARTAN POTASSIUM 50 MG TABLET PO ONE (17:09)
[2025-04-14] MEDS: TRAZODONE 50 MG TABLET PO SCH (20:32)
[2025-04-14] MEDS: ATORVASTATIN 40 MG TABLET PO SCH (20:32)
[2025-04-14] MEDS: DONEPEZIL 10 MG TABLET PO SCH (20:32)
[2025-04-14] MEDS: FAMOTIDINE 20 MG TABLET PO SCH (20:32)
[2025-04-14] MEDS: TAMSULOSIN HCL 0.4 MG CAP.SR.24H PO SCH (20:35)
[2025-04-14] MEDS ORDERED: FAMOTIDINE PO SCH (21:00)
[2025-04-14] MEDS: APIXABAN 5 MG TABLET PO SCH (21:23)
[2025-04-15] VITALS (10 sets, daily range): BP systolic 117–155; BP diastolic 60–77; TEMP 97.8–98.4; O2SAT 94–99
[2025-04-15] MEDS: GUAIFENESIN SUGAR FREE 100 MG/5 ML UDC PO PRN (04:20)
[2025-04-15 06:52] LABS: PLATELET COUNT (AUTO) 195 K/uL (152-348); RED BLOOD CELL COUNT(AUTO) 4.68 MIL/uL (4.06-5.63); RED CELL DISTRIBUTION WIDTH 16.7 % (12.1-16.2); WHITE BLOOD COUNT (AUTO) 7.0 K/uL (3.6-10.2)
[2025-04-15 07:09] LABS: CREATININE 1.8 mg/dL (0.6-1.3); SODIUM SERUM 141 mmol/L (136-145); UREA NITROGEN, BLOOD 32 mg/dL (7-18)
[2025-04-15] MEDS: buPROPion XL 150 MG TAB.SR.24H PO SCH (08:26)
[2025-04-15] MEDS: CHOLECALCIFEROL 1,000 UNIT TABLET PO SCH (08:26)
[2025-04-15] MEDS: ALLOPURINOL 100 MG TABLET PO SCH (08:27)
[2025-04-15] MEDS: LORAZEPAM 1 MG TABLET PO SCH (08:27)
[2025-04-15] MEDS: LOSARTAN POTASSIUM 50 MG TABLET PO SCH (08:27)
[2025-04-15] MEDS: CYANOCOBALAMIN 1,000 MCG TABLET PO SCH (08:28)
[2025-04-15] MEDS: FOLIC ACID 1 MG TABLET PO SCH (08:28)
[2025-04-15] MEDS: AMLODIPINE 5 MG TABLET PO SCH (08:28)
[2025-04-15] MEDS: SERTRALINE HCL 100 MG TABLET PO SCH (08:28)
[2025-04-15] MEDS: FUROSEMIDE 40 MG TABLET PO SCH (08:28)
[2025-04-15] MEDS: LIDOCAINE 5% PATCH TD SCH (08:33)
[2025-04-15] MEDS ORDERED: PRED20TA PO (08:51)
[2025-04-15] MEDS ORDERED: AZIT250T PO (08:51)
[2025-04-15] MEDS ORDERED: FOLIC ACID PO SCH (09:00)
[2025-04-16] MEDS ORDERED: AZITHROMYCIN 250 MG TABLET PO SCH (09:49)
== END 2025-04-15 13:40 | DRG 190 ==
LOC: ER 06:06 → MEDSURG1 08:58 → TELE3 09:25
PROVIDERS: ADMIT Internal Medicine; ATTEND Internal Medicine
DX: J44.1 Chronic obstructive pulmonary disease with (acute) exacerbation (principal); J96.01 Acute respiratory failure with hypoxia; L89.153 Pressure ulcer of sacral region, stage 3; L89.323 Pressure ulcer of left buttock, stage 3; L89.313 Pressure ulcer of right buttock, stage 3; E44.0 Moderate protein-calorie malnutrition; G91.2 (Idiopathic) normal pressure hydrocephalus; F02.A4 Dementia in other diseases classified elsewhere, mild, with anxiety; I13.0 Hypertensive heart and chronic kidney disease with heart failure and stage 1 through stage 4 chronic kidney disease, or unspecified chronic kidney disease; F02.A3 Dementia in other diseases classified elsewhere, mild, with mood disturbance; E66.9 Obesity, unspecified; Z68.29 Body mass index [BMI] 29.0-29.9, adult; E88.09 Other disorders of plasma-protein metabolism, not elsewhere classified; Z99.3 Dependence on wheelchair; E83.52 Hypercalcemia; N40.1 Benign prostatic hyperplasia with lower urinary tract symptoms; R33.8 Other retention of urine; L22 Diaper dermatitis; Z87.891 Personal history of nicotine dependence; G20.A1 Parkinson's disease without dyskinesia, without mention of fluctuations; N18.2 Chronic kidney disease, stage 2 (mild); M10.9 Gout, unspecified; G47.33 Obstructive sleep apnea (adult) (pediatric); I50.9 Heart failure, unspecified; E53.8 Deficiency of other specified B group vitamins; Z88.8 Allergy status to other drugs, medicaments and biological substances; Z87.01 Personal history of pneumonia (recurrent); Z79.51 Long term (current) use of inhaled steroids; Z79.01 Long term (current) use of anticoagulants; F32.A Depression, unspecified; Z79.899 Other long term (current) drug therapy; G62.9 Polyneuropathy, unspecified
CPT/HCPCS: 36415; 71045; 83605; 83735; 84100; 84484; 85025; 87040; 94640; 94664; A4606; A4663; G0378; J0456; J2919; J3590; J7050; J8499